=== PATIENT | female | born 1995 | race Hispanic/Latino ===

== ENCOUNTER → 2017-05-14 | Outpatient (CLI) | payer OTHER ==
[2017-05-14 18:22] LABS: BASO % 0.1 % (0.0-1.0); EOS # 0.1 10^3/uL (0.0-0.50); EOS % 0.6 % (0.0-3.0); IMMATURE GRANULOCYTE % 0.2 % (0-0); LYMPH # 1.9 10^3/uL (1.5-6.5); LYMPH % 23.1 % (24.0-44.0); MEAN CORPUSCULAR HEMOGLOBIN 29.1 pg (27.0-33.0); MEAN CORPUSCULAR HGB CONC 34.1 g/dl (32.0-36.5); MEAN CORPUSCULAR VOLUME 85.3 fl (80.0-96.0); MONO # 0.5 10^3/uL (0.0-0.8); MONO % 5.6 % (0.0-5.0); NEUTROPHILS # 5.8 10^3/uL (1.8-7.7); NEUTROPHILS % 70.4 % (36.0-66.0); PLATELET COUNT, AUTOMATED 211 10^3/uL (150-450); RED CELL DISTRIBUTION WIDTH 11.9 % (11.5-14.5); WHITE BLOOD COUNT 8.2 10^3/uL (4.0-10.0)
[2017-05-17 11:38] LABS: HBsAg Prenatal NEGATIVE (NEGATIVE)
== END ==
LOC: M SMT 13:24
PROVIDERS: ATTEND Advanced Practice Midwife
DX: Z36.89 Encounter for other specified antenatal screening (principal); Z3A.14 14 weeks gestation of pregnancy

== ENCOUNTER → 2017-05-17 | Outpatient (CLI) | payer OTHER ==
--- NOTE | 2017-05-18 05:52 | REP ---
Clinical: Anatomical evaluation -- Twin gestation. Comparison: None . Findings: Examination demonstrates known diamniotic dichorionic twin gestation with placenta identified posteriorly for twin A and anteriorly for twin B and grade zero without evidence for placenta previa or abruption. Cervix measures 3.9 cm cm in length and appears closed. Concordant growth is noted. Gestational age by LMP with 14 weeks 1 day with KATELYN 11/14/2017 . TWIN A: Twin A identified in variable presentation along the maternal left side. motion is appreciated. Amniotic fluid volume is normal. Gestational age by current measurements 14 weeks 1 day with KATELYN 11/14/2017 . FHR equals 157 beats per minute. Estimated weight 94 grams ( 48th percentile). ------- TWIN B: Twin B identified in variable presentation along the maternal right side. motion is appreciated. Amniotic fluid volume is normal. Gestational age by current measurements 14 weeks 1 day with KATELYN 11/14/2017 . FHR equals 153 beats per minute. Estimated weight 92nd grams ( 44th percentile). Impression: Diamniotic dichorionic twin gestation measuring at 14 weeks 1 day gestational age. Complete anatomical survey performed 19-20 weeks. Signed by Smith Keller MD 05/18/2017 05:43 A
== END ==
LOC: M SMT 13:54
PROVIDERS: ATTEND Advanced Practice Midwife
DX: O30.042 Twin pregnancy, dichorionic/diamniotic, second trimester (principal); Z3A.14 14 weeks gestation of pregnancy

== ENCOUNTER → 2017-06-17 | Outpatient (CLI) | payer OTHER | LOC: M SMT 14:02 | DX: O30.042 Twin pregnancy, dichorionic/diamniotic, second trimester (principal); Z3A.18 18 weeks gestation of pregnancy | CPT/HCPCS: 76811 ==

== ENCOUNTER → 2017-07-09 | Outpatient (CLI) | payer OTHER ==
[2017-07-13 10:13] LABS: RUBEOLA IgG ANTIBODY <25.0 AU/mL (Immune >29.9)
[2017-07-13 10:13] LABS: MUMPS VIRUS IgG ANTIBODY <9.0 AU/mL (Immune >10.9)
== END ==
LOC: M SMT 13:37
DX: O30.042 Twin pregnancy, dichorionic/diamniotic, second trimester (principal); Z3A.21 21 weeks gestation of pregnancy
CPT/HCPCS: 86765

== ENCOUNTER → 2017-08-13 | Outpatient (CLI) | payer OTHER | LOC: M SMT 13:08 | DX: O30.042 Twin pregnancy, dichorionic/diamniotic, second trimester (principal) ==

== ENCOUNTER → 2017-08-26 | Outpatient (CLI) | payer OTHER ==
[2017-08-26 13:41] LABS: HEMATOCRIT 35.4 % (36.0-47.0); MEAN CORPUSCULAR HEMOGLOBIN 29.6 pg (27.0-33.0); MEAN CORPUSCULAR HGB CONC 33.9 g/dl (32.0-36.5); MEAN CORPUSCULAR VOLUME 87.2 fl (80.0-96.0); PLATELET COUNT, AUTOMATED 201 10^3/uL (150-450); RED BLOOD COUNT 4.06 10^6/uL (4.00-5.40); RED CELL DISTRIBUTION WIDTH 13.4 % (11.5-14.5); WHITE BLOOD COUNT 10.5 10^3/uL (4.0-10.0)
[2017-08-26 13:56] LABS: GLUCOSE CHALLENGE TEST 1 HOUR 101 MG/DL (LESS THAN 140)
== END ==
LOC: M SMT 09:26
DX: O30.042 Twin pregnancy, dichorionic/diamniotic, second trimester (principal)

== ENCOUNTER → 2017-09-10 | Outpatient (CLI) | payer OTHER | LOC: M SMT 14:28 | DX: Z36.9 Encounter for antenatal screening, unspecified (principal); O30.043 Twin pregnancy, dichorionic/diamniotic, third trimester; Z3A.30 30 weeks gestation of pregnancy | CPT/HCPCS: 76816 ==

== ENCOUNTER → 2017-10-07 | Outpatient (REF) | payer OTHER | LOC: M LAB REF 12:56 | DX: O30.043 Twin pregnancy, dichorionic/diamniotic, third trimester (principal); Z3A.00 Weeks of gestation of pregnancy not specified | CPT/HCPCS: 87081 ==

== ENCOUNTER → 2017-10-08 | Outpatient (CLI) | payer OTHER | LOC: M SMT 13:31 | DX: O30.042 Twin pregnancy, dichorionic/diamniotic, second trimester (principal); Z3A.35 35 weeks gestation of pregnancy | CPT/HCPCS: 76816 ==

== ENCOUNTER 2017-10-29 12:19 | Inpatient (IN) | payer OTHER ==
[2017-10-29] MEDS: LR 1,000 ML IV ×2 (13:52→21:34)
[2017-10-29] MEDS: OXYTOCIN DRIP 30 UNITS in APPROPRIATE DILUENT 1 EA IV (14:12)
[2017-10-29 14:13] LABS: HEMATOCRIT 36.6 % (36.0-47.0); HEMOGLOBIN 12.9 g/dl (12.0-15.5); MEAN CORPUSCULAR HEMOGLOBIN 30.1 pg (27.0-33.0); MEAN CORPUSCULAR HGB CONC 35.2 g/dl (32.0-36.5); MEAN CORPUSCULAR VOLUME 85.3 fl (80.0-96.0); PLATELET COUNT, AUTOMATED 136 10^3/uL (150-450); RED BLOOD COUNT 4.29 10^6/uL (4.00-5.40); WHITE BLOOD COUNT 7.1 10^3/uL (4.0-10.0)
[2017-10-29 14:36] LABS: AMPHETAMINES URINE REFLEX NEGATIVE (NEGATIVE); BARBITURATES URINE REFLEX NEGATIVE (NEGATIVE); BENZODIAZEPINES URINE REFLEX NEGATIVE (NEGATIVE); CANNABINOIDS URINE REFLEX NEGATIVE (NEGATIVE); COCAINE METABOLITE URINE REFLE NEGATIVE (NEGATIVE); METHADONE URINE REFLEX NEGATIVE (NEGATIVE); OPIATES URINE REFLEX NEGATIVE (NEGATIVE); PHENCYCLIDINE URINE REFLEX NEGATIVE (NEGATIVE)
[2017-10-30] MEDS: BUTORPHANOL 2 MG/ML INJ (J0595) IV (01:25)
[2017-10-30] MEDS: PROMETHAZINE INJ 25 MG/ML VIAL (J2550) IV (01:25)
[2017-10-30] MEDS ORDERED: FENTANYL 2MCG/ML ROPIVACAINE 0.2% IN 0.9% NACL 200ML IVBAG As Ordered (05:57)
[2017-10-30] MEDS: LR 1,000 ML IV ×3 (06:00→19:30)
[2017-10-30] MEDS ORDERED: ePHEDrine SULFATE 25 MG/5 ML(5MG/ML) SYRINGE IV (06:55)
[2017-10-30] MEDS ORDERED: EPIDURAL COMMENT XX (06:55)
[2017-10-30] MEDS ORDERED: NALOXONE INJ 0.4 MG/1 ML VIAL (J2310) IV (06:55)
[2017-10-30] MEDS ORDERED: LACTATED RINGER'S 1000 ML IV (06:55)
[2017-10-30] MEDS ORDERED: diphenhydrAMINE INJ 50MG/ML VIAL (J1200) IV (06:55)
[2017-10-30] MEDS ORDERED: EPIDURAL/PCA KEYS XX (06:55)
[2017-10-30] MEDS ORDERED: FENTANYL/ROPIVACAINE/NACL BAG 200 ML EPIDURAL (06:55)
[2017-10-30] MEDS ORDERED: ONDANSETRON 4MG/2ML VIAL (J2405) IV ×3 (06:55→19:30)
[2017-10-30] MEDS ORDERED: REFRIGERATOR IV KEYS XX (06:55)
[2017-10-30] MEDS ORDERED: BICITRA 30ML SOLN UDC As Ordered (16:23)
[2017-10-30] MEDS ORDERED: ceFAZolin 2 GM/D5W 50 ML IV BAG (J0690 PER 500MG) As Ordered (16:23)
[2017-10-30] MEDS: BICITRA 30ML SOLN UDC PO (17:58)
[2017-10-30] MEDS ORDERED: MORPHINE PRES-FREE INJ 10 MG/10 ML VIAL (J2274) As Ordered (18:38)
[2017-10-30] MEDS ORDERED: LIDOCAINE PRES-FREE 2% 10ML AMP As Ordered (18:49)
[2017-10-30] MEDS ORDERED: PHENYLephrine HCL 500 MCG/5 ML (100MCG/ML) SYRINGE (J2370) As Ordered (18:51)
[2017-10-30] MEDS ORDERED: OXYTOCIN INJ 10 UNITS/ML VIAL (J2590) As Ordered ×2 (18:52)
[2017-10-30] MEDS ORDERED: KETOROLAC 60 MG/2 ML VIAL (J1885) As Ordered (18:52)
[2017-10-30] MEDS ORDERED: ONDANSETRON 4MG/2ML VIAL (J2405) As Ordered (18:52)
[2017-10-30] MEDS ORDERED: miSOPROStol 200 MCG TAB (S0191) As Ordered (19:12)
[2017-10-30] MEDS ORDERED: fentaNYL 100 MCG/2 ML INJECTION (J3010) As Ordered (19:23)
[2017-10-30] MEDS ORDERED: PERCOCET 5MG/325MG TAB PO ×2 (19:30)
[2017-10-30] MEDS ORDERED: METOCLOPRAMIDE INJ 10MG/2ML VIAL (J2765) IV (19:30)
[2017-10-30] MEDS ORDERED: fentaNYL 100 MCG/2 ML INJECTION (J3010) IV (19:30)
[2017-10-30] MEDS ORDERED: MEPERIDINE INJ 25 MG/ML VIAL (J2175) IV (19:30)
[2017-10-30] MEDS: miSOPROStol 200 MCG TAB (S0191) PR (19:30)
[2017-10-30] MEDS ORDERED: PERCOCET 5MG/325MG TAB As Ordered (20:36)
[2017-10-30] MEDS: DOCUSATE SODIUM 100 MG CAP PO (23:26)
[2017-10-31] MEDS: KETOROLAC 30 MG/ML VIAL (J1885) IV ×4 (02:58→19:40)
[2017-10-31] MEDS: LR 1,000 ML IV ×3 (03:22→19:21)
[2017-10-31] MEDS: PERCOCET 5MG/325MG TAB PO ×3 (03:22→22:28)
[2017-10-31] MEDS: MEASLES,MUMPS,RUBELLA VACCINE INJ (MMR-II) (90707) SC (07:17)
[2017-10-31 07:18] LABS: HEMOGLOBIN 11.2 g/dl (12.0-15.5); MEAN CORPUSCULAR HEMOGLOBIN 29.9 pg (27.0-33.0); MEAN CORPUSCULAR VOLUME 85.3 fl (80.0-96.0); PLATELET COUNT, AUTOMATED 110 10^3/uL (150-450); RED BLOOD COUNT 3.75 10^6/uL (4.00-5.40); WHITE BLOOD COUNT 14.3 10^3/uL (4.0-10.0)
[2017-10-31] MEDS: RHOGAM 300 MCG (1500 IU) INJ (J2790) IM (07:18)
[2017-10-31] MEDS: PRENATAL VITAMINS CHEWABLE TABLET PO (08:10)
[2017-10-31] MEDS: IBUPROFEN 800 MG TAB PO (18:56)
[2017-11-01] MEDS: LR 1,000 ML IV (02:25)
[2017-11-01] MEDS: PERCOCET 5MG/325MG TAB PO ×3 (02:28→18:50)
[2017-11-01] MEDS: PRENATAL VITAMINS CHEWABLE TABLET PO ×2 (08:40→09:00)
[2017-11-01] MEDS: IBUPROFEN 800 MG TAB PO ×2 (11:24→18:51)
[2017-11-02] MEDS: IBUPROFEN 800 MG TAB PO (03:31)
[2017-11-02] MEDS: PRENATAL VITAMINS CHEWABLE TABLET PO (08:43)
[2017-11-02] MEDS: PERCOCET 5MG/325MG TAB PO (08:45)
== END 2017-11-02 12:30 | disposition home or self-care (01) | DRG 765 ==
LOC: M LDI 12:19 → M OBS 10-30 21:11
PROVIDERS: Specialist
PROC: 10D00Z1 Extraction of Products of Conception, Low, Open Approach (ICD-10-PCS; principal; 2017-10-30 18:15)
PROC: 3E033VJ Introduction of Other Hormone into Peripheral Vein, Percutaneous Approach (ICD-10-PCS; 2017-10-30 18:15)
DX: O41.03X0 Oligohydramnios, third trimester, not applicable or unspecified (principal); O30.043 Twin pregnancy, dichorionic/diamniotic, third trimester; Z37.2 Twins, both liveborn; Z3A.37 37 weeks gestation of pregnancy; O32.4XX0 Maternal care for high head at term, not applicable or unspecified

== ENCOUNTER → 2019-02-28 | Outpatient (REF) | payer OTHER ==
[~2019-02-28] MED LIST: IRON50TA PO; MOTR200T44 PO; OXYC1TAB23 PO; PRENTAB9 PO
[2019-03-04 16:03] LABS: HPV HYBRID CAPTURE II Negative (Negative)
== END ==
LOC: M LAB REF 14:03
PROVIDERS: ATTEND Advanced Practice Midwife
DX: Z12.4 Encounter for screening for malignant neoplasm of cervix (principal)

== ENCOUNTER → 2020-03-04 | Outpatient (REF) | payer OTHER ==
[2020-03-05 22:08] LABS: CHLAMYDIA DNA AMPLIFICATION NEGATIVE (NEGATIVE); GC DNA AMPLIFICATION NEGATIVE (NEGATIVE)
== END ==
LOC: M SFHCWAGY 16:50
PROVIDERS: ATTEND Obstetrics & Gynecology
DX: Z12.4 Encounter for screening for malignant neoplasm of cervix (principal)
CPT/HCPCS: 87624; 87661; G0123

== ENCOUNTER → 2020-05-23 | Outpatient (REF) | payer OTHER | LOC: M PLALAB 10:26 | PROVIDERS: ATTEND Obstetrics & Gynecology | DX: Z34.91 Encounter for supervision of normal pregnancy, unspecified, first trimester (principal); Z53.9 Procedure and treatment not carried out, unspecified reason; Z3A.00 Weeks of gestation of pregnancy not specified ==